=== PATIENT | male | born 1985 | race Caucasian/White ===

== ENCOUNTER 2019-09-05 09:39 | Day surgery (SDC) | payer OTHER ==
[~2019-09-05 09:39] MED LIST: Lactated Ringers 1,000 ML IV SCH
--- NOTE | 2019-09-05 10:01 | PCM.PREANE ---
Preanesthetic Assessment - Anesthesia/Transfusion/Family Hx Anesthesia History: Prior Anesthesia Without Reaction Family History of Anesthesia Reaction: No Transfusion History: No Prior Transfusion(s) Intubation History: Unknown - Review of Systems General: No Symptoms Pulmonary: No Symptoms Cardiovascular: No Symptoms Gastrointestinal: No Symptoms Neurological: No Symptoms Other: Reports: None - Physical Assessment Vital Signs: Last Vital Signs Temp 36.6 C 09/05/19 09:58 Pulse 88 09/05/19 09:58 Resp 20 09/05/19 09:58 BP 131/94 H 09/05/19 09:58 Pulse Ox 95 09/05/19 09:58 Height: 6 ft 2 in Weight: 104.326 kg ASA Class: 2 Mental Status: Alert & Oriented x3 Airway Class: Mallampati = 1 Dentition: Reports: Normal Dentition Thyro-Mental Finger Breadths: 3 Mouth Opening Finger Breadths: 3 ROM/Head Extension: Full Lungs: Clear to Auscultation, Normal Respiratory Effort Cardiovascular: Regular Rate, Regular Rhythm - Allergies Allergies/Adverse Reactions: Allergies Allergy/AdvReac Type Severity Reaction Status Date / Time No Known Allergies Allergy Verified 09/02/19 14:05 - Blood Blood Available: No - Anesthesia Plan Pre-Op Medication Ordered: None - Acknowledgements Anesthesia Type Planned: General Anesthesia Pt an Appropriate Candidate for the Planned Anesthesia: Yes Alternatives and Risks of Anesthesia Discussed w Pt/Guardian: Yes Pt/Guardian Understands and Agrees with Anesthesia Plan: Yes PreAnesthesia Questionnaire HEENT History: Reports: Other (See Below) Other HEENT History: wears glasses Cardiovascular History: Reports: None Respiratory History: Reports: Other (See Below) Other Respiratory History: concave chest deformity Gastrointestinal History: Reports: None Genitourinary History: Reports: None Musculoskeletal History: Reports: Fracture, Other (See Below) Other Musculoskeletal History: hx fx left wrist, concave chest deformity Neurological History: Reports: None Psychiatric History: Reports: None Endocrine/Metabolic History: Reports: None Hematologic History: Reports: None Immunologic History: Reports: None Oncologic (Cancer) History: Reports: None Dermatologic History: Reports: None - Past Surgical History Head Surgeries/Procedures: Reports: None HEENT Surgical History: Reports: None Cardiovascular Surgical History: Reports: None Respiratory Surgical History: Reports: None GI Surgical History: Reports: None Male Surgical History: Reports: None Endocrine Surgical History: Reports: None Neurological Surgical History: Reports: None Musculoskeletal Surgical History: Reports: ORIF Other Musculoskeletal Surgeries/Procedures:: left wrist surgery x4, repair of rt leg laceration Oncologic Surgical History: Reports: None Dermatological Surgical History: Reports: None - SUBSTANCE USE Tobacco Use Within Last Twelve Months: Other (See Below) (chews tobacco) Recreational Drug Type: Reports: Other (see below) Recreational Drug Last Use: hx performance inhancing drugs, not used in over 6 months - HOME MEDS Home Medications: Home Meds Hydrocodone/Acetaminophen [Hydrocodon-Acetaminophen 5-325] 1 - 2 tab PO Q4H PRN 09/02/19 [History] - CURRENT (IN HOUSE) MEDS Current Meds: Current Medications Lactated Ringer's (Ringers, Lactated) 1,000 mls @ 100 mls/hr IV ASDIRECTED JONI
[2019-09-05] MEDS ORDERED: Propofol 200 MG/20 ML SDV ONE (10:38)
[2019-09-05] MEDS ORDERED: Lidocaine 2% 5 ML SDV ONE (10:39)
[2019-09-05] MEDS ORDERED: Midazolam 1 MG/ML 2 ML SDV ONE (10:39)
[2019-09-05] MEDS ORDERED: fentaNYL 250 MCG/5 ML SDV ONE (10:39)
[2019-09-05] MEDS ORDERED: Bupivacaine 0.5% 30 ML SDV ONE (10:48)
[2019-09-05] MEDS ORDERED: ceFAZolin/Dextrose,Iso-Osmotic 2 GM/50 ML Duplex Bag IV ONE (11:53)
[2019-09-05] MEDS ORDERED: Bupivacaine 0.25% 10 ML SDV ONE (13:13)
[2019-09-05] MEDS ORDERED: Acetaminophen 500 MG Tab PO PRN (13:32)
[2019-09-05] MEDS ORDERED: Meperidine PF 25 MG/ML Syringe ONE (13:38)
[2019-09-05] MEDS ORDERED: Naloxone 0.4 MG/ML Syringe IVPUSH PRN (13:39)
[2019-09-05] MEDS ORDERED: Atropine 0.1 MG/ML 10 ML Syringe IVPUSH PRN ×2 (13:39)
[2019-09-05] MEDS ORDERED: EPINEPHrine 1:10,000 1 MG/10 ML Syringe IVPUSH PRN (13:39)
[2019-09-05] MEDS ORDERED: 50% Dextrose in Water 50 ML Syringe IVPUSH PRN (13:39)
[2019-09-05] MEDS ORDERED: Albuterol 0.083% 2.5 MG/3 ML Neb Soln NEB PRN (13:39)
[2019-09-05] MEDS ORDERED: Meperidine PF 25 MG/ML Syringe IVPUSH ONE (13:40)
[2019-09-05] MEDS ORDERED: fentaNYL 100 MCG/2 ML SDV ONE (13:55)
[2019-09-05] MEDS: fentaNYL 100 MCG/2 ML SDV IVPUSH PRN ×2 (13:56→14:01)
[2019-09-05] MEDS ORDERED: HYDROmorphone 2 MG/ML Syringe IVPUSH ONE (14:05)
--- NOTE | 2019-09-05 14:30 | PCM.POSTAN ---
POST ANESTHESIA ASSESSMENT - MENTAL STATUS Mental Status: Alert - VITAL SIGNS Vital Signs: Last Vital Signs Temp 36.6 C 09/05/19 13:31 Pulse 78 09/05/19 14:26 Resp 12 09/05/19 14:26 BP 155/90 H 09/05/19 14:26 Pulse Ox 98 09/05/19 14:26 - RESPIRATORY Respiratory Status: Respiratory Rate WNL - CARDIOVASCULAR CV Status: Pulse Rate WNL - GASTROINTESTINAL GI Status: No Symptoms - POST OP HYDRATION Hydration Status: Adequate & Stable
--- NOTE | 2019-09-05 14:31 | PCM48HPAN ---
Post Anesthesia Note - EVALUATION WITHIN 48HRS OF ANESTHETIC Vital Signs in Normal Range: Yes Patient Participated in Evaluation: Yes Respiratory Function Stable: Yes Airway Patent: Yes Cardiovascular Function Stable: Yes Hydration Status Stable: Yes Pain Control Satisfactory: Yes Nausea and Vomiting Control Satisfactory: Yes Mental Status Recovered: Yes Vital Signs: Last Vital Signs Temp 36.6 C 09/05/19 13:31 Pulse 78 09/05/19 14:26 Resp 12 09/05/19 14:26 BP 155/90 H 09/05/19 14:26 Pulse Ox 98 09/05/19 14:26
[2019-09-05] MEDS ORDERED: oxyCODONE 5 MG Tab PO PRN (15:27)
--- NOTE | 2019-09-05 17:18 | CR ---
Ankle: Nine fluoroscopic spot views were obtained of the ankle. Side of exam was not given at time of dictation. Study shows partial subluxation within the tibiotalar joint. Trimalleolar fractures are noted. Final film shows single screw within the medial malleolus as well as plate and screws within the lateral malleolus fracture. Skin sharif are present. Ankle mortise is symmetric. Fluoroscopy time given is 31.1 seconds Impression: Reduction and fixation of previous fractures. Diagnostic code #2 MTDD
[2019-09-06] MEDS ORDERED: oxyCODONE 5 MG Tab PO PRN (09:00)
--- NOTE | 2019-09-09 09:30 | OR ---
SURGEON: EVELIA DAMON MD DATE OF PROCEDURE: 09/05/2019 The patient's surgery performed at [facility] [place]. PREOPERATIVE DIAGNOSES: Left ankle fracture with medial malleolar fracture, possible distal fibular fracture, and posterior tibial/malleolar fracture. POSTOPERATIVE DIAGNOSES: Left ankle fracture dislocation with medial malleolar fracture, displaced; distal fibular fracture, displaced; posterior malleolar fracture involving less than one-third of the distal tibial articular surface and dislocation of the joint. PROCEDURES: Left ankle: 1. Open reduction and internal fixation of distal fibular fracture using distal fibular locking plate. 2. Open reduction and internal fixation of medial malleolar fracture using cancellous screw and a washer 40 mm in length. 3. Closed reduction of posterior malleolar fracture without internal fixation. 4. Closed reduction of dislocated ankle under fluoroscopy control. 5. Fluoroscopic examination of left ankle under anesthesia and interpretation of images. 6. Application of short-leg posterior splint. Procedure performed under fluoroscopic control and general anesthesia using [place] trauma technique. PRIMARY SURGEON: Evelia Damon MD FIELD TALENT QUALIFICATION SPECIALIST: Carrol Gregorio, nurse practitioner. TYPE OF ANESTHESIA: General anesthesia. TOURNIQUET TIME: 52 minutes. ESTIMATED BLOOD LOSS: 10 mL. INDICATION FOR SURGERY: This is a 34-year-old man who sustained twisting injury to the left ankle and presented with above-mentioned injury, needing above-mentioned procedure. All risks, complications, alternatives, and benefits explained to the patient, and the patient elected to proceed with surgery. DESCRIPTION OF PROCEDURE: The patient underwent general anesthesia. The patient kept in supine position including tourniquet applied to the left thigh, as well as left thigh surgical drape. Left lower extremity prepared with Betadine scrub and prepped and draped in usual standard fashion. Left lower extremity was elevated and tourniquet raised to 300 mmHg. Left ankle then screened under fluoroscopic control and identified to have fracture dislocation of left ankle with components of distal fibular fracture, displaced medial malleolar fracture, displaced posterior malleolar fracture involving less than one-third of the distal tibial articular surface and fracture dislocation of the ankle. Attention directed towards the distal fibula. Incision was made over the distal fibula. The skin, superficial, and deep fascia were dissected along the incision line. Fibular fracture was exposed. There was a significant displacement with interposed periosteal flap. Interposed periosteal flap was removed. Fracture was then reduced and stabilized with 1 interfragmentary compression screw from anterior to posterior direction, followed by a distal fibular application to stabilize the fibular fracture using 3.5 mm locking and nonlocking screws under fluoroscopic control. Fixation was found to be satisfactory under fluoroscopic control. The wound was then irrigated with normal saline mixed with Betadine and closed in a layered fashion with 2-0 Vicryl to the deeper tissue and sharif to skin. Following that, attention was directed towards the medial malleolar fracture. Anteromedial incision was made over the medial malleolus. The skin, superficial tissue, and deep fascia were dissected along the same line. Saphenous vein identified and corrected out of the harm's way. Medial malleolar fracture was found to be comminuted and displaced with interposed tissue. The interposed tissue was then removed. Medial malleolar fracture then reduced and temporarily stabilized with 1 K-wire, which was passed under fluoroscopic control. Following that, medial malleolar fracture stabilized with one 40 mm cancellous screw with a washer. Adequate fluoroscopic images were obtained to confirm satisfactory stabilization of the fracture with congruity of the medial articular surface normalized. There was a small comminuted fragment which was impacted at the fracture site. Medial wound then irrigated with normal saline mixed with Betadine and closed in layered fashion with 2-0 Vicryl in the deeper tissue and sharif to skin. Following that, attention was directed to the posterior malleolar fracture. This was reduced by closed means. Reduction confirmed under fluoroscopic control on AP, lateral, and oblique planes, and found to be satisfactorily reduced with fragment slightly less than one-third of the distal tibial articular surface. Therefore, not considered for fixation. Following that, left ankle then screened under fluoroscopic control and stress varus and valgus force, which showed stable inferior tibiofibular syndesmosis with satisfactory reduction of the ankle joint dislocation. Wounds then infiltrated with 30 mL of 0.5% Marcaine for postoperative anesthesia. Wound then covered with Adaptic, 4x4, ABD and Webril. Left ankle then supported in short-leg posterior splint, maintaining the ankle in plantigrade position. Tourniquet was then released. Estimated blood loss, 10 mL. The patient received 2 g of Ancef IV before coming to the procedure as prophylaxis against infection. There were no complications during or immediately after surgery. The patient recovered and transferred to recovery in stable condition. FOLLOWUP PLAN: The patient will be admitted for recovery. The patient will be discharged home following recovery from the same-day surgery center. The patient is recommended to keep the left lower extremity in an elevated position while resting, ice the left ankle, toe-touch weightbearing, immobilization with crutches, Tylenol/ibuprofen 2 tablet every 8 hours for pain relief for 3 days, followed by p.r.n. basis to be taken with food to avoid gastric dysmotility symptoms, and oxycodone on a tapering dose to be discontinued within 1 week's time to prevent opoid dependency. The patient will be evaluated in the office in 2 week's time. At that time, the patient will have removal of posterior splint, examination of the wound, removal of sharif, application of Steri-Strips, and application of short-leg cast with x-ray of the left ankle AP, lateral, and oblique views. The patient is recommended to refrain from returning to work for 2 weeks. Following that, [id number] status will be reevaluated. LEXY CHAHAL /[id number]
== END 2019-09-05 16:30 | disposition home or self-care (01) ==
LOC: MW.SDS 09:39
PROVIDERS: ATTEND Orthopaedic Surgery
DX: S82.52XA Displaced fracture of medial malleolus of left tibia, initial encounter for closed fracture (principal); S82.832A Other fracture of upper and lower end of left fibula, initial encounter for closed fracture; S82.392A Other fracture of lower end of left tibia, initial encounter for closed fracture; F17.220 Nicotine dependence, chewing tobacco, uncomplicated
CPT/HCPCS: 27766; 27768; 27792; 27842; 76000; A9270; C1713; J0690; J1170; J2001; J2175; J2250; J2704; J3010; J3490; J7120; 01480